=== PATIENT | female | born 1965 | race Caucasian/White ===

== ENCOUNTER 2021-01-01 07:37 | Outpatient (CLI) | payer OTHER | END 2021-01-01 07:38 | disposition home or self-care (01) | LOC: SCSMRI 07:37 | PROVIDERS: ATTEND Orthopaedic Surgery | DX: S83.241A Other tear of medial meniscus, current injury, right knee, initial encounter (principal) ==

== ENCOUNTER 2021-07-25 13:29 | Outpatient (CLI) | payer BC ==
[~2021-07-25 13:29] MED LIST: Magnevist 469MG/ML 20 ML VIAL ONE
== END 2021-07-25 13:30 | disposition home or self-care (01) ==
LOC: BICMRI 13:29
PROVIDERS: ATTEND Family Medicine
DX: G50.0 Trigeminal neuralgia (principal); I67.82 Cerebral ischemia; G93.0 Cerebral cysts
CPT/HCPCS: 70553; A9579

== ENCOUNTER 2024-04-06 18:02 | Inpatient (IN) | payer OTHER ==
[2024-04-06] MEDS ORDERED: hydrALAZINE 20 MG/ML VIAL SLOW IVP PRN (20:46)
[2024-04-06] MEDS ORDERED: Dextrose 50% Abboject 50 ML SYRINGE SLOW IVP PRN (20:46)
[2024-04-06] MEDS ORDERED: Dextrose 5% in Water 1,000 ML IV PRN (20:46)
[2024-04-06] MEDS ORDERED: Glucagon 1 MG/ML KIT IM PRN (20:46)
[2024-04-06] MEDS ORDERED: Acetaminophen 325 MG TAB PO PRN (20:46)
[2024-04-06] MEDS ORDERED: Piperacillin/Tazobactam 3.375 GM in Sodium Chloride 0.9% 100 ML IVPB SCH (21:00)
[2024-04-06 21:19] VITALS: BMI 27.1
[2024-04-06] MEDS: Piperacillin/Tazobactam 3.375 GM in Sodium Chloride 0.9% 100 ML IVPB SCH (21:39)
[2024-04-06] MEDS: Docusate 100 MG CAP PO SCH (21:39)
[2024-04-06] MEDS: Ondansetron PF 4 MG/2 ML Vial IVP PRN (21:39)
[2024-04-06] MEDS: HYDROcodone/Acetaminophen 7.5/325 mg Tablet PO PRN (21:40)
[2024-04-06] MEDS: Lactated Ringer's 1,000 ML IV SCH (21:41)
[2024-04-07] MEDS: Morphine 2 MG/ML VIAL SLOW IVP PRN (00:12)
[2024-04-07] MEDS: Piperacillin/Tazobactam 3.375 GM VIAL ONE (02:00)
[2024-04-07] MEDS: Piperacillin/Tazobactam 3.375 GM in Sodium Chloride 0.9% 100 ML IVPB SCH (02:02)
[2024-04-07 05:28] LABS: #Basophils 0.04 10x3/uL (0.0-0.2); %Basophils 0.4 % (0.0-1.0); %Eosinophils 1.3 % (0.0-10.0); %Lymphocytes 16.9 % (21.0-51.0); %Monocytes 8.4 % (0.0-10.0); %Neutrophils 72.6 % (42.0-75.0); Hematocrit 40.5 % (36.0-47.0); Hemoglobin 14.1 g/dL (12.0-16.0); Mean Corpuscular HGB CONC 34.8 g/dL (32.0-36.0); Mean Corpuscular Hemoglobin 32.9 pg (27.0-31.0); Mean Corpuscular Volume 94.4 fL (78.0-98.0); Mean Platelet Volume 10.4 fL (7.4-10.4); Platelet Count 196 10x3/uL (130-400); RBC Distribution Width 13.3 % (11.5-14.5); Red Blood Cell (RBC) Count 4.29 mill/uL (4.20-5.40)
[2024-04-07 05:51] LABS: ALT (SGPT) 224 U/L (8-55); AST (SGOT) 93 U/L (5-34); Albumin 2.7 g/dL (3.5-5.0); Alkaline Phosphatase 214 U/L (40-110); Anion Gap 11 mmol/L (10-20); BUN (Urea Nitrogen) 13 mg/dL (9.8-20.1); Bilirubin, Total 7.6 mg/dL (0.2-1.2); Calc. Creatinine Clearance 117 mL/min (70-130); Calcium 8.6 mg/dL (7.8-10.44); Carbon Dioxide 21 mmol/L (22-29); Chloride 106 mmol/L (98-107); Estimated GFR 100; Globulin 3.4 g/dL (2.4-3.5); Glucose 93 mg/dL (70-105); Potassium 3.7 mmol/L (3.5-5.1); Protein, Total 6.1 g/dL (6.0-8.3); Sodium 134 mmol/L (136-145)
[2024-04-07 06:18] LABS: Lipase 3323 U/L (8-78)
[2024-04-07] MEDS ORDERED: Morphine 4 MG/ML VIAL SLOW IVP PRN (06:29)
[2024-04-07] MEDS: Ketorolac Tromethamine 30 MG (1 mL) VIAL IVP SCH ×2 (07:45→13:25)
[2024-04-07] MEDS: Sodium Chloride 0.9% 1,000 ML IV SCH ×2 (07:53→13:28)
[2024-04-07] MEDS: Scopolamine 1 mg/72 hour Patch TD SCH (08:10)
[2024-04-07] MEDS: Acetaminophen 500 MG TAB PO SCH (08:10)
[2024-04-07] MEDS ORDERED: Acetaminophen 325 MG TAB PO SCH (09:00)
[2024-04-07] MEDS ORDERED: Bupivacaine PF 0.5% 30 ML VIAL ONE (09:04)
[2024-04-07] MEDS ORDERED: Glucagon 1 MG/ML KIT ONE (09:04)
[2024-04-07] MEDS ORDERED: EPINEPHrine 1 MG/ML VIAL ONE (09:04)
[2024-04-07] MEDS ORDERED: Lidocaine 2% PF 5 ML VIAL ONE (09:11)
[2024-04-07] MEDS ORDERED: PROPOFOL 20 ML ONE (09:11)
[2024-04-07] MEDS ORDERED: Piperacillin/Tazobactam 3.375 GM VIAL ONE (09:14)
[2024-04-07] MEDS ORDERED: Sodium Chloride 0.9% 100 ML ONE (09:16)
[2024-04-07] MEDS ORDERED: Indomethacin 50 MG SUPP ONE (09:18)
[2024-04-07] MEDS ORDERED: Iopamidol 30 ML ONE (09:20)
[2024-04-07] MEDS ORDERED: fentaNYL PF 100 MCG/2 ML SYRINGE ONE ×3 (09:31→11:24)
[2024-04-07] MEDS ORDERED: Midazolam HCl 2 mg/2 ml Vial ONE (09:31)
[2024-04-07] MEDS ORDERED: SUCCINYLCHOLINE/SOD CL,ISO/PF 200 MG/10 ML SYRINGE FS ONE (09:36)
[2024-04-07] MEDS ORDERED: Rocuronium Bromide 10 MG/ML (10ML VIAL) ONE (09:36)
[2024-04-07] MEDS ORDERED: Dexamethasone 20 MG/5 ML VIAL ONE (09:49)
[2024-04-07] MEDS ORDERED: Ondansetron PF 4 MG/2 ML Vial ONE (09:49)
[2024-04-07] MEDS ORDERED: ePHEDrine Sulfate 50 MG/10 ML VIAL ONE (10:34)
[2024-04-07] MEDS ORDERED: SUGAMMADEX SODIUM 200 MG/2 ML VIAL ONE (10:41)
[2024-04-07] MEDS ORDERED: NARATRIPTAN HCL 2.5 MG PO PRN (10:44)
[2024-04-07] MEDS ORDERED: lamoTRIgine 100 MG TAB PO SCH (10:45)
[2024-04-07] MEDS ORDERED: SUMAtriptan Succinate 50 MG TAB PO PRN (10:47)
[2024-04-07] MEDS: lamoTRIgine 100 MG TAB PO SCH ×2 (15:35→21:04)
[2024-04-07] MEDS: Enoxaparin 40 MG (0.4 mL) SYRINGE SC SCH (21:03)
[2024-04-08 05:23] LABS: #Basophils 0.05 10x3/uL (0.0-0.2); %Basophils 0.3 % (0.0-1.0); %Eosinophils 1.7 % (0.0-10.0); %Lymphocytes 8.3 % (21.0-51.0); %Monocytes 6.8 % (0.0-10.0); %Neutrophils 82.2 % (42.0-75.0); Hematocrit 37.1 % (36.0-47.0); Hemoglobin 12.8 g/dL (12.0-16.0); Mean Corpuscular HGB CONC 34.5 g/dL (32.0-36.0); Mean Corpuscular Hemoglobin 32.7 pg (27.0-31.0); Mean Corpuscular Volume 94.9 fL (78.0-98.0); Mean Platelet Volume 10.5 fL (7.4-10.4); Platelet Count 173 10x3/uL (130-400); RBC Distribution Width 13.4 % (11.5-14.5); Red Blood Cell (RBC) Count 3.91 mill/uL (4.20-5.40)
[2024-04-08 05:50] LABS: Lipase 670 U/L (8-78); Potassium 3.6 mmol/L (3.5-5.1); Sodium 135 mmol/L (136-145)
[2024-04-08 05:51] LABS: ALT (SGPT) 175 U/L (8-55); AST (SGOT) 76 U/L (5-34); Albumin 2.4 g/dL (3.5-5.0); Alkaline Phosphatase 205 U/L (40-110); Anion Gap 12 mmol/L (10-20); BUN (Urea Nitrogen) 18 mg/dL (9.8-20.1); Calc. Creatinine Clearance 116 mL/min (70-130); Calcium 8.2 mg/dL (7.8-10.44); Carbon Dioxide 21 mmol/L (22-29); Chloride 106 mmol/L (98-107); Estimated GFR 100; Glucose 87 mg/dL (70-105); Protein, Total 5.4 g/dL (6.0-8.3)
[2024-04-08 12:38] VITALS: BP 110/69; TEMP 98.4
== END 2024-04-08 14:29 | disposition home or self-care (01) | DRG 417 ==
LOC: SURG B 19:46
PROVIDERS: ADMIT Surgery; ATTEND Surgery
PROC: 0FT44ZZ Resection of Gallbladder, Percutaneous Endoscopic Approach (ICD-10-PCS; principal; 2024-04-07)
PROC: 0FC78ZZ Extirpation of Matter from Common Hepatic Duct, Via Natural or Artificial Opening Endoscopic (ICD-10-PCS; 2024-04-07)
PROC: BF0C1ZZ Plain Radiography of Hepatobiliary System, All using Low Osmolar Contrast (ICD-10-PCS; 2024-04-07)
DX: K80.60 Calculus of gallbladder and bile duct with cholecystitis, unspecified, without obstruction (principal); K85.10 Biliary acute pancreatitis without necrosis or infection; G50.0 Trigeminal neuralgia; Z79.899 Other long term (current) drug therapy; Z88.8 Allergy status to other drugs, medicaments and biological substances; Z88.0 Allergy status to penicillin; Z90.710 Acquired absence of both cervix and uterus
CPT/HCPCS: 36415; 74330; 80053; 83690; 85025; 88304; C1889; J0171; J0665; J1100; J1611; J1650; J1885; J2250; J2272; J2405; J2543; J2704; J7030; J7120; Q9967

== ENCOUNTER 2025-03-05 13:11 | Outpatient (CLI) | payer OTHER | END 2025-03-05 13:12 | disposition home or self-care (01) | LOC: SCSULT 13:11 | PROVIDERS: ATTEND Internal Medicine | DX: C43.9 Malignant melanoma of skin, unspecified (principal); R22.1 Localized swelling, mass and lump, neck; E04.1 Nontoxic single thyroid nodule | CPT/HCPCS: 76536 ==

== ENCOUNTER 2025-03-19 13:04 | Day surgery (SDC) | payer OTHER ==
[2025-03-19] MEDS ORDERED: Sodium Bicarbonate 2.5 MEQ/5 ML SDV ONE (13:06)
[2025-03-19] MEDS ORDERED: Lidocaine 1% PF 5 ML VIAL ONE (13:06)
== END 2025-03-19 15:00 | disposition home or self-care (01) ==
LOC: ULT 13:04
PROVIDERS: ATTEND Internal Medicine Endocrinology, Diabetes & Metabolism
PROC: 0G9H3ZX Drainage of Right Thyroid Gland Lobe, Percutaneous Approach, Diagnostic (ICD-10-PCS; principal; 2025-03-19)
DX: E04.1 Nontoxic single thyroid nodule (principal); R63.5 Abnormal weight gain; Z68.32 Body mass index [BMI] 32.0-32.9, adult; Z85.820 Personal history of malignant melanoma of skin; Z87.891 Personal history of nicotine dependence; Z90.49 Acquired absence of other specified parts of digestive tract; Z90.710 Acquired absence of both cervix and uterus; Z88.8 Allergy status to other drugs, medicaments and biological substances; Z88.1 Allergy status to other antibiotic agents
CPT/HCPCS: 10005; 88173

== ENCOUNTER 2025-03-26 09:37 | Outpatient (CLI) | payer OTHER | END 2025-03-26 09:38 | disposition home or self-care (01) | LOC: SCSRAD 09:37 | PROVIDERS: ATTEND Family Medicine | DX: S99.921A Unspecified injury of right foot, initial encounter (principal) ==